=== PATIENT | female | born 1950 | race Caucasian/White ===

== ENCOUNTER 2024-09-09 14:44 | Outpatient (CLI) | payer MEDICARE, SELFPAY ==
--- NOTE | 2024-09-09 15:15 | MR_ITS ---
WS: [id number] MRA HEAD TECHNIQUE: Axial 3-D TOF images obtained with axial images and axial, sagittal, and coronal 2-D reformatted images. CLINICAL INFORMATION: CVA COMPARISON: None. FINDINGS: Distal vertebral arteries are patent. Basilar artery is patent. Normal vascularity to the BOX FINISHER territory bilaterally. Persistent RIGHT BOX FINISHER. Both ICAs are patent at the skull base. Normal vascularity to the TONYA territory. Normal vascularity to the MCA territories bilaterally. No evidence of proximal flow-limiting stenosis. MR/MR angio head wo con [id number] IMPRESSION: 1. No evidence of intracranial proximal flow-limiting stenosis. 2. Persistent RIGHT BOX FINISHER. 3. Mild intracranial atheromatous disease.
== END 2024-09-09 14:45 | disposition home or self-care (01) ==
PROVIDERS: Visit Provider Electrodiagnostic Medicine
DX: Z86.73 Personal history of transient ischemic attack (TIA), and cerebral infarction without residual deficits (principal); R93.0 Abnormal findings on diagnostic imaging of skull and head, not elsewhere classified; I67.2 Cerebral atherosclerosis
CPT/HCPCS: 70544

== ENCOUNTER 2024-10-15 08:58 | Outpatient (CLI) | payer OTHER, SELFPAY ==
--- NOTE | 2024-10-15 09:10 | USCV_ITS ---
Beverley Blair Age: 74 Gender: F : 1950 Exam Date: 10/15/2024 09:58 Ordering Phys: Felipe Maurer DO Technologist: Exam Location: [facility] [place] Indication: tia Risk Factors: Previous Vascular Surgery: Right Brachial BP: / Left Brachial BP: / Right Left Velocity (cm/s) Spectral Plaque Velocity (cm/s) Spectral Plaque Syst/Diast Broadening Syst/Diast Broadening 54.30/ 20.60 Prox CCA 53.80 / 11.40 67.20/ 15.40 Mid CCA 67.90 / 14.00 67.20/ 14.10 Distal CCA 56.80 / 12.50 83.50/ 16.60 Prox ICA 79.50 / 13.80 70.60/ 15.30 Mid ICA 53.00 / 13.80 77.00/ 15.30 Distal ICA 60.50 / 12.50 75.00 ECA 82.10 1.20 ICA/CCA 1.40 Antegrade Vertebral Antegrade 50.00/ 8.90 cm/s 63.10/ 15.00 cm/s Bi Subclavian Tri 59.00 110.2 0 CONCLUSIONS Right ICA stenosis <50%. Left ICA stenosis <50%. Intimal thickening in the common carotid arteries and internal carotid arteries bilaterally. Normal antegrade Doppler flow noted in the right vertebral artery. Normal antegrade Doppler flow noted in the left vertebral artery. Ash Ramirez MD (Electronically Signed) Final Date: 15 October 2024 14:02 S
--- NOTE | 2024-10-15 09:10 | USCV_ITS ---
Beverley Blair Age: 74 Gender: F : 1950 Exam Date: 10/15/2024 09:38 Ordering Phys: Felipe Maurer DO Technologist: [place] [facility] [place]: tia BP: 120 / 70 HR: 62 Rhythm: Sinus Technical Quality: Adequate MEASUREMENTS (Male / Female) Normal Values 2D ECHO LV Diastolic Diameter PLAX 3.6 cm 4.2 - 5.9 / 3.9 - 5.3 cm IVS Diastolic Thickness 1.0 cm 0.6 - 1.0 / 0.6 - 0.9 cm IVS Systolic Thickness 1.4 cm LVPW Diastolic Thickness 1.2 cm 0.6 - 1.0 / 0.6 - 0.9 cm LVPW Systolic Thickness 1.5 cm LVOT Diameter 2.0 cm LV Ejection Fraction 2D Teich 69.1 % LV Ejection Fraction MOD 4C 63.4 % LV Ejection Fraction MOD 2C 70.0 % LV Ejection Fraction 2C AL 70.6 % LA Diameter 4.0 cm RA Systolic Volume 4C AL 48.0 ml RA Systolic Volume 4C MOD 47.4 ml Aorta at Sinotubular Diameter 2.7 cm M-MODE LA Ao Ratio MM 1.7 AV Cusp Separation MM 2.2 cm DOPPLER AV Peak Velocity 141.0 cm/s LVOT Peak Velocity 118.0 cm/s AV Area Cont Eq vti 3.2 cm squared AV Area Cont Eq pk 2.7 cm squared MV Peak Velocity 81.0 cm/s MV Area PHT 3.7 cm squared Mitral E to A Ratio 0.8 TV Peak Velocity 248.5 cm/s TR Peak Velocity 279.0 cm/s TR Peak Gradient 31.1 mmHg TV Peak E Velocity 65.0 cm/s PV Peak Velocity 88.0 cm/s FINDINGS Left Ventricle Normal left ventricular size and systolic function, EF 63%. No regional wall motion abnormalities. Grade I/IV diastolic dysfunction (abnormal relaxation filling pattern), normal to mildly elevated filling pressures. Right Ventricle The right ventricle is normal in size and function. Right Atrium The right atrium is normal in size. Left Atrium Mildly increased left atrial size. Mitral Valve Trace mitral valve regurgitation. Aortic Valve Thickened aortic valve. Moderate aortic valve calcification. Tricuspid Valve Mild tricuspid valve regurgitation. Estimated pulmonary artery peak systolic pressure 34 mmHg Pulmonic Valve No gross abnormalities noted Pericardium Normal pericardium without effusion. Aorta Normal ascending aorta dimension. IVC The inferior vena cava appears normal. CONCLUSIONS Normal left ventricular size and systolic function, EF 63%. No regional wall motion abnormalities. Grade I/IV diastolic dysfunction (abnormal relaxation filling pattern), normal to mildly elevated filling pressures. Thickened aortic valve. Moderate aortic valve calcification. Mild tricuspid valve regurgitation. Estimated pulmonary artery peak systolic pressure 34 mmHg. There is no pericardial effusion. There are no intracardiac masses. No similar previous studies are available for comparison Dr Manny Amador MD FAC (Electronically Signed) Final Date: 16 October 2024 08:50 S
== END 2024-10-15 08:59 | disposition home or self-care (01) ==
PROVIDERS: PCP Electrodiagnostic Medicine; Visit Provider Electrodiagnostic Medicine
DX: Z86.73 Personal history of transient ischemic attack (TIA), and cerebral infarction without residual deficits (principal); R93.1 Abnormal findings on diagnostic imaging of heart and coronary circulation; I35.8 Other nonrheumatic aortic valve disorders; I07.1 Rheumatic tricuspid insufficiency
CPT/HCPCS: 93306; 93880

== ENCOUNTER → 2025-05-21 14:48 | Outpatient (BNVA) | payer OTHER, SELFPAY | PROVIDERS: PCP Electrodiagnostic Medicine; Visit Provider Internal Medicine Endocrinology, Diabetes & Metabolism | DX: E04.1 Nontoxic single thyroid nodule (principal) | CPT/HCPCS: 99204 ==